=== PATIENT | female | born 1940 | race Caucasian/White ===

== ENCOUNTER → 2020-07-16 | Outpatient (CLI) | payer MEDICARE ==
[2020-07-16 14:56] LABS: HEMOGLOBIN 12.3 gm/dl (12.3-15.3); RED BLOOD COUNT 3.57 M/UL (4.00-5.10); WHITE BLOOD COUNT 6.3 K/UL (4.5-11.0)
[2020-07-16 16:02] LABS: BUN/CREATININE RATIO 23 (0-10)
== END ==
LOC: LAB 14:05
PROVIDERS: Internal Medicine
DX: R60.0 Localized edema (principal); E53.8 Deficiency of other specified B group vitamins; D61.818 Other pancytopenia; R51.9 Headache, unspecified
CPT/HCPCS: 80048; 82607; 85025; 85652

== ENCOUNTER → 2021-09-06 | Outpatient (CLI) | payer MEDICARE ==
[2021-09-06 10:40] LABS: RED BLOOD COUNT 3.55 M/UL (4.00-5.10)
[2021-09-06 11:00] LABS: BUN/CREATININE RATIO 31 (0-10)
== END ==
LOC: LAB 08:57
PROVIDERS: Internal Medicine
DX: R60.9 Edema, unspecified (principal)
CPT/HCPCS: 36415; 80053; 84439; 84443; 85025